=== PATIENT | male | born 1975 | race Caucasian/White ===

== ENCOUNTER 2021-12-25 20:36 | Emergency (ER) | payer MEDICARE ==
[~2021-12-25] VITALS: Ht 170.2 cm; Wt 81.6 kg
[2021-12-25 20:40] VITALS: BP 139/97
[2021-12-25] MEDS ORDERED: CYCLOBENZAPRINE 10 MG TABLET. PO ONE (22:15)
[2021-12-25] MEDS ORDERED: HYDROcodone/APAP 5/325MG 1 TAB TABLET PO ONE (22:15)
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
== END 2021-12-25 22:56 | disposition left against medical advice (07) ==
LOC: ER 20:36
DX: S01.01XA Laceration without foreign body of scalp, initial encounter (principal); M25.511 Pain in right shoulder; M25.512 Pain in left shoulder; M25.551 Pain in right hip; M79.602 Pain in left arm; M79.601 Pain in right arm; M54.2 Cervicalgia; Z88.1 Allergy status to other antibiotic agents; Z88.2 Allergy status to sulfonamides; Y08.89XA Assault by other specified means, initial encounter; Y93.89 Activity, other specified; Y92.89 Other specified places as the place of occurrence of the external cause; Y99.8 Other external cause status
CPT/HCPCS: 12001; 70450; 70486; 72125; 73502; 73030-50; 73080-50; 73090-50; 73130-50; 99284-25